=== PATIENT | female | born 1965 | race Caucasian/White ===

== ENCOUNTER → 2021-07-07 | Outpatient (CLI) | payer OTHER ==
[2021-07-09 01:16] LABS: Alternaria alternata IgE <0.10 kU/L; Aspergillus fumagatus IgE <0.10 kU/L; Birch IgE <0.10 kU/L; Cat Epith & Dander IgE 0.85 kU/L; Cladosporian herbarum IgE <0.10 kU/L; Cockroach IgE 0.14 kU/L; Dog Dander IgE <0.10 kU/L; Elm IgE <0.10 kU/L; Maple (Box Elder) IgE <0.10 kU/L; Oak IgE 0.19 kU/L; Ragweed,Common IgE <0.10 kU/L; Red Top (Bentgrass) IgE 0.25 kU/L
== END | disposition home or self-care (01) ==
LOC: LABWHC1 10:28
PROVIDERS: ATTEND Internal Medicine Critical Care Medicine
DX: J45.50 Severe persistent asthma, uncomplicated (principal)
CPT/HCPCS: 36415; 82785; 86003

== ENCOUNTER 2022-08-23 16:39 | Emergency (ER) | payer OTHER ==
[2022-08-23 16:48] VITALS: RESP 16
--- NOTE | 2022-08-23 17:43 | XR ---
EXAMINATION TYPE: XR shoulder complete RT DATE OF EXAM: 08/23/2022 5:37 PM INDICATION: Patient age:Female; 56 years old; Reason for study: fall; COMPARISON: None TECHNIQUE: The right shoulder was examined in AP, internally rotated and scapular Y projections. FINDINGS: No evidence of acute osseous pathology, joint dislocation, or soft tissue swelling. The remaining por tions of the visualized chest are unremarkable. Large osteophytes are present off the acromion and small osteophyte of the inferior glenoid. Consulta tions at the insertion of the supraspinatus are also present. IMPRESSION: No acute osseous pathology. Mild to moderate degeneration of the right shoulder with suspected tendin opathy. If there remains concern for fracture consider CT examination.
[2022-08-23] MEDS ORDERED: ORPHENADRINE 30 MG/ML 2 ML VIAL IM STA (17:53)
[2022-08-23] MEDS ORDERED: ACETAMINOPHEN TAB 500 MG TAB PO STA (17:53)
[2022-08-23] MEDS ORDERED: ACET/COD 300 MG/30 MG STARTER PACK 6 TAB BTL PO STA (18:35)
--- NOTE | 2022-08-23 18:38 | ED ---
General Adult HPI - General Chief complaint: Fall Stated complaint: Fall [facility] Time Seen by Provider: 08/23/22 16:52 Source: patient, RN notes reviewed Mode of arrival: ambulatory Limitations: no limitations - History of Present Illness Initial comments: 56 year-old female presents to the emergency department with chief complaint of mechanical fall that occurred at work about 45 minutes prior to arriving to the emergency Department. She states that she tripped on the curb. Patient states that she fell on her right shoulder and is now having pain. She states that she is unable to lift her arm above her head in the frontal and lateral plane. She did not take anything at home for pain. Denies hitting her head, loss consciousness, blood thinner. Denies any other pain or injury. - Related Data Allergies Allergy/AdvReac Type Severity Reaction Status Date / Time adhesive tape Allergy Rash/Hives Verified 08/23/22 16:48 bacitracin Allergy Rash/Hives Verified 08/23/22 16:48 [From Neosporin ([id number])] erythromycin base Allergy Rapid Verified 08/23/22 16:48 [From Erythrocin] Heart Rate latex Allergy Rash/Hives Verified 08/23/22 16:48 lidocaine Allergy Rash/Hives Verified 08/23/22 16:48 neomycin Allergy Rash/Hives Verified 08/23/22 16:48 [From Neosporin ([id number])] polymyxin B Allergy Rash/Hives Verified 08/23/22 16:48 [From Neosporin ([id number])] Review of Systems ROS Statement: Those systems with pertinent positive or pertinent negative responses have been documented in the HPI. ROS Other: All systems not noted in ROS Statement are negative. Past Medical History Past Medical History: Asthma History of Any Multi-Drug Resistant Organisms: None Reported Past Surgical History: Cholecystectomy, Tonsillectomy Past Psychological History: No Psychological Hx Reported Smoking Status: Never smoker Past Alcohol Use History: None Reported Past Drug Use History: None Reported General Exam Limitations: no limitations General appearance: alert, in no apparent distress Head exam: Present: atraumatic, normocephalic, normal inspection Eye exam: Present: normal appearance, PERRL, EOMI. Absent: scleral icterus, conjunctival injection, periorbital swelling ENT exam: Present: normal exam, mucous membranes moist Neck exam: Present: normal inspection. Absent: tenderness, meningismus, lymphadenopathy Respiratory exam: Present: normal lung sounds bilaterally. Absent: respiratory distress, wheezes, rales, rhonchi, stridor Cardiovascular Exam: Present: regular rate, normal rhythm, normal heart sounds. Absent: systolic murmur, diastolic murmur, rubs, gallop, clicks Extremities exam: Present: other (Decreased abduction and extension of the right shoulder, radial pulse 2+, capillary refills normal, neurovascularly intact) Back exam: Present: normal inspection Neurological exam: Present: alert, oriented X3, CN II-XII intact Psychiatric exam: Present: normal affect, normal mood Skin exam: Present: warm, dry, intact, normal color. Absent: rash Course Vital Signs 08/23/22 08/23/22 16:44 18:56 Temperature 98 F 98.0 F Pulse Rate 93 78 Respiratory 16 16 Rate Blood Pressure 126/75 126/83 O2 Sat by Pulse 98 97 Oximetry Medical Decision Making - Medical Decision Making Was pt. sent in by a medical professional or institution (, PA, APPLIQUE SEWER, urgent care, hospital, or penitentiary...) When possible be specific @ -No Did you speak to anyone other than the patient for history (EMS, parent, family, police, friend...)? What history was obtained from this source @ -No Did you review nursing and triage notes (agree or disagree)? Why? @ -I reviewed and agree with nursing and triage notes Were old charts reviewed (outside hosp., previous admission, EMS record, old EKG, old radiological studies, urgent care reports/EKG's, penitentiary records)? Report findings @ -No old charts were reviewed Differential Diagnosis (chest pain, altered mental status, abdominal pain women, abdominal pain men, vaginal bleeding, weakness, fever, dyspnea, syncope, headache, dizziness, GI bleed, back pain, seizure, CVA, palpatations, mental health, musculoskeletal)? @ -Differential Musculoskeletal Muscular strain, contusion, ligament sprain, fracture, arthritis, septic arthritis, bursitis, cellulitis, muscle spasm, nerve compression, DVT, arterial occlusion, herpes zoster, electrolyte abnormality, tumor.... This is not meant to be in all inclusive list EKG interpreted by me (3pts min.). @ -None X-rays interpreted by me (1pt min.). @ -X-ray right shoulder showed no acute abnormality, evidence of osteoarthritis CT interpreted by me (1pt min.). @ -None done U/S interpreted by me (1pt. min.). @ -None done What testing was considered but not performed or refused? (CT, X-rays, U/S, labs)? Why? @ -None What meds were considered but not given or refused? Why? @ -None Did you discuss the management of the patient with other professionals (professionals i.e. DrMelinda, PA, APPLIQUE SEWER, lab, RT, psych nurse, social media assistant, cyber crime investigator, teacher, global safety officer, oil field caser)? Give summary @ -No Was smoking cessation discussed for >3mins.? @ -No Was critical care preformed (if so, how long)? @ -No Were there social determinants of health that impacted care today? How? (Francisco elessness, low income, unemployed, alcoholism, drug addiction, transportation, low edu. Level, literacy, decrease access to med. care, long term, rehab)? @ -No Was there de-escalation of care discussed even if they declined (Discuss DNR or withdrawal of care, Hospice)? DNR status @ -No What co-morbidities impacted this encounter? (DM, HTN, Smoking, COPD, CAD, Cancer, CVA, ARF, Chemo, Hep., AIDS, mental health diagnosis, sleep apnea, morbid obesity)? @ -None Was patient admitted / discharged? Hospital course, mention meds given and route, prescriptions, significant lab abnormalities, going to OR and other pertinent info. @ -Discharged. Patient presented to the emergency department with chief complaint of fall at work just prior to presenting. Patient complains of right shoulder pain. X-ray of the right shoulder showed no acute abnormality. She was given Tylenol and Norflex injection. Patient cannot have NSAIDs due to prior gastric ulcer. Because of the decreased range of motion patient was given orthopedic information for follow-up on outpatient basis. Patient given a starter pack for Tylenol #3 and instructed to follow up with her primary care provider. Case discussed with my attending, Dr. Bucio. Patient discharged in stable condition Undiagnosed new problem with uncertain prognosis? @ -No Drug Therapy requiring intensive monitoring for toxicity (Heparin, Nitro, Insulin, Cardizem)? @ -No Were any procedures done? @ -No Diagnosis/symptom? @ -Shoulder pain Acute, or Chronic, or Acute on Chronic? @ -Acute Uncomplicated (without systemic symptoms) or Complicated (systemic symptoms)? @ -uncomplicated Side effects of treatment? @ -No Exacerbation, Progression, or Severe Exacerbation? @ -No Poses a threat to life or bodily function? How? (Chest pain, [place], NH, pneumonia, PE, COPD, DKA, ARF, appy, cholecystitis, CVA, Diverticulitis, Homicidal, Suicidal, threat to staff... and all critical care pts) @ -No Disposition Clinical Impression: Fall, Shoulder pain, acute Disposition: HOME SELF-CARE Condition: Stable Instructions (If sedation given, give patient instructions): Fall Prevention (ED) Additional Instructions: Please return to the Emergency Department if symptoms worsen or any other concerns. Is patient prescribed a controlled substance at d/c from ED?: No Referrals: Tereso Moreland MD [Primary Care Provider] - 1-2 days Tom Banegas DO [Doctor of Osteopathic Medicine] - 1-2 days Time of Disposition: 18:35
[2022-08-23 18:57] VITALS: BP 126/83; PULSE 78; TEMP 98
== END 2022-08-23 18:57 | disposition home or self-care (01) ==
LOC: EC 16:39
DX: M25.511 Pain in right shoulder (principal); J45.909 Unspecified asthma, uncomplicated; Z88.1 Allergy status to other antibiotic agents; Z88.4 Allergy status to anesthetic agent; Z91.040 Latex allergy status; Z91.09 Other allergy status, other than to drugs and biological substances; W01.0XXA Fall on same level from slipping, tripping and stumbling without subsequent striking against object, initial encounter; Y99.0 Civilian activity done for income or pay
CPT/HCPCS: 73030; 99284; 96372; J2360

== ENCOUNTER → 2022-10-04 | Outpatient (CLI) | payer OTHER | END | disposition home or self-care (01) | LOC: LABPAT 07:51 | PROVIDERS: ATTEND Orthopaedic Surgery Sports Medicine | DX: Z01.812 Encounter for preprocedural laboratory examination (principal) | CPT/HCPCS: 36415; 84132 ==

== ENCOUNTER 2022-10-05 06:59 | Day surgery (SDC) | payer OTHER ==
[~2022-10-05 06:59] MED LIST: DESMOPRESSIN ACETATE 40 MCG in SODIUM CHLORIDE 0.9% 50 ML IVPB PRN; DEXAMETHASONE SOD PHOSPHATE 4 MG/ML 1 ML VIAL IV ONE; LACTATED RINGERS 1,000 ML IV SCH; MIDAZOLAM 2 MG/2 ML VIAL IV PRN; ONDANSETRON 4 MG/2 ML VIAL IVP ONE; Pre Op ABX Message 1 EACH MISC MISCELLANE ONE; SCOPOLAMINE 1 MG/72 HR PATCH TRANSDERM ONE
[2022-10-05] MEDS ORDERED: HYDROmorphone 0.5 MG/0.5 ML SYRINGE IVP PRN (07:00)
[2022-10-05] MEDS ORDERED: MIDAZOLAM 2 MG/2 ML VIAL IVP ONE (07:45)
[2022-10-05] MEDS ORDERED: GLYCOPYRROLATE 0.2 MG/ML 2 ML VIAL ONE (07:59)
[2022-10-05] MEDS ORDERED: ROCURONIUM 10 MG/ML (5 ML VIAL) IV ONE (07:59)
[2022-10-05] MEDS ORDERED: DEXAMETHASONE SOD PHOSPHATE 4 MG/ML 1 ML VIAL ONE (07:59)
[2022-10-05] MEDS ORDERED: fentaNYL (PF) 50 MCG/ML 2 ML AMP ONE (07:59)
[2022-10-05] MEDS ORDERED: MIDAZOLAM 2 MG/2 ML VIAL ONE (07:59)
[2022-10-05] MEDS ORDERED: SUCCINYLCHOLINE CHLORIDE 200 MG/10 ML VIAL IV ONE (07:59)
[2022-10-05] MEDS ORDERED: PHENYLEPHRINE-0.9% NACL SYG 1,000 MCG/10 ML SYRINGE ONE (07:59)
[2022-10-05] MEDS ORDERED: PROPOFOL 10 MG/ML 20 ML VIAL IV ONE (07:59)
[2022-10-05] MEDS ORDERED: ROPIVACAINE 5 MG/ML 30 ML VIAL ONE (07:59)
[2022-10-05] MEDS ORDERED: NEOSTIGMINE 1 MG/ML 10 ML VIAL ONE (07:59)
[2022-10-05] MEDS ORDERED: ALBUTEROL INHALER 60 PUFF/8 GM INHALER (MHU) INHALATION ONE (08:02)
[2022-10-05 08:03] LABS: Basophils % (A) 0 %; Eosinophils # (A) 0.1 k/uL (0-0.7); Eosinophils % (A) 2 %; HGB 13.8 gm/dL (11.4-16.0); Lymphocytes # (A) 1.5 k/uL (1.0-4.8); Lymphocytes % (A) 28 %; MCH 29.5 pg (25.0-35.0); MCHC 32.2 g/dL (31.0-37.0); MCV 91.5 fL (80.0-100.0); Mean Platelet Volume 11.6; Monocytes # (A) 0.4 k/uL (0-1.0); Monocytes % (A) 7 %; Neutrophils # (A) 3.3 k/uL (1.3-7.7); Neutrophils % (A) 61 %; Platelet Count 144 k/uL (150-450); RDW 13.8 % (11.5-15.5); WBC 5.4 k/uL (3.8-10.6)
[2022-10-05 08:08] LABS: ALT 32 U/L (4-34); AST 31 U/L (14-36); African American GFR (CKD) 69 (>60 ml/min/1.73 sqM); Alkaline Phosphatase 65 U/L (38-126); Anion Gap 6 mmol/L; Blood Urea Nitrogen 34 mg/dL (7-17); Calcium 9.2 mg/dL (8.4-10.2); Carbon Dioxide 33 mmol/L (22-30); Chloride 99 mmol/L (98-107); Glucose 107 mg/dL (74-99); Non-African American GFR(CKD) 60 (>60 ml/min/1.73 sqM); Potassium 3.8 mmol/L (3.5-5.1); Sodium 138 mmol/L (137-145); Total Bilirubin 0.8 mg/dL (0.2-1.3); Total Protein 6.8 g/dL (6.3-8.2)
[2022-10-05] MEDS ORDERED: SODIUM CHLORIDE 0.9% 100 ML BAG ONE (08:14)
[2022-10-05] MEDS ORDERED: ceFAZolin 1,000 MG VIAL ONE (08:14)
[2022-10-05] MEDS ORDERED: LIDOCAINE 2%-EPI 1:100,000 20 ML VIAL SQ ONE ×2 (08:35)
[2022-10-05 09:41] VITALS: TEMP 97
[2022-10-05] MEDS ORDERED: ONDANSETRON 4 MG/2 ML VIAL IVP ONE (09:50)
--- NOTE | 2022-10-05 11:17 | P.ANPRN ---
Procedure Note - Anesthesia - Nerve Block Performed Right Interscalene Single Time Out Performed: Yes Date of Procedure: 10/05/22 Procedure Start Time: 06:45 Procedure Stop Time: :52 Location of Patient: PreOp Indication: Acute Post-Operative Pain, Requested by Surgeon Sedation Type: Sedate with meaningful contact maintained Preparation: Sterile Prep Position: Supine Needle Types: Pajunk Needle Gauge: 21 Ultrasound used to visualize needle placement: Yes Ultrasound used to observe medication spread: Yes Blood Aspirated: No Pain Paresthesia on Injection Noted: No Resistance on Injection: Normal Image Stored and Saved: Yes Events: Uneventful and Well Tolerated (Ropivacaine 0.5% 20 mL plus dexamethasone 4 mg)
[2022-10-05] MEDS ORDERED: HYDROcodone/APAP 7.5-325MG 1 EACH TAB ONE (11:33)
[2022-10-05 11:52] VITALS: RESP 14
[2022-10-05 12:21] VITALS: BP 101/66; PULSE 97
--- NOTE | 2022-10-05 16:48 | OP ---
OPERATIVE REPORT DATE OF SERVICE : 10/05/2022 PREOPERATIVE DIAGNOSES: 1. Right shoulder full-thickness rotator cuff tear. 2. Right shoulder superior labral tear. 3. Right shoulder medial subluxation of long head biceps tendon. 4. Right shoulder subacromial impingement. POSTOPERATIVE DIAGNOSES: 1. Right shoulder full-thickness tear of the supraspinatus and the anterior infraspinatus measuring 2 cm x 2 cm. There was also a small tear of the upper border of the subscapularis as well. 2. Right shoulder type 2 superior labral tear. 3. Right shoulder partial tearing, intra-articular, long head of the biceps tendon with medial subluxation. 4. Right shoulder type 2 to 3 anterolateral acromial spur. PROCEDURES PERFORMED: 1. Right shoulder arthroscopic rotator cuff repair. 2. Right shoulder arthroscopic acromioplasty. 3. Right shoulder arthroscopic biceps tenotomy. 4. Right shoulder arthroscopic anterior, superior, and posterior labral debridement. ANESTHESIA: General endotracheal. ESTIMATED BLOOD LOSS: Minimal. TOURNIQUET: None. DRAINS: None. COMPLICATIONS: None apparent. DISPOSITION: Postanesthesia care unit. FINDINGS: EXAMINATION UNDER ANESTHESIA OF THE RIGHT SHOULDER: Elevation 160 degrees. External rotation at the side 45 degrees. External rotation at 90 degrees of abduction was 90 degrees. Internal rotation at 90 degrees of abduction was 60 degrees. Sulcus less than 1 cm. Anterior translation glenoid face. Posterior translation glenoid face. ARTHROSCOPIC FINDINGS OF THE RIGHT SHOULDER: 1. Superior labrum: Type 2 superior labral tear. This extended both anterior and posterior to the biceps anchor. The biceps anchor was not intact. She also had partial tearing of the intra-articular portion of the long head of the biceps tendon. There was a small superior border tear of the subscapularis as well, and the biceps was medially subluxed over the small tear. 2. Anterior-inferior labrum: Normal glenoid labral attachment. 3. Posterior labrum: Tearing of the posterior labrum from the 10 o'clock position to the 12 o'clock position on the glenoid face. 4. Humeral head: Cartilage was normal. 5. Rotator cuff: Large full-thickness tear of the supraspinatus and the anterior infraspinatus measuring 2 cm x 3 cm. 6. Glenoid face: Cartilage was normal. 7. Subacromial space: Significant fraying of the undersurface of the coracoacromial ligament with a type 2 to 3 anterolateral acromial spur. INDICATIONS FOR PROCEDURE: Blessing is a very pleasant 56-year-old female, who injured her right shoulder. She has noted weakness as well as significant pain in the shoulder. She has been through a fairly significant course of nonoperative treatment up to this point. Physical examination and MRI revealed tearing of the superior labrum as well as a large rotator cuff tear. At this point in time, she feels that she has failed nonoperative treatment and would like to proceed with operative intervention. Long discussion was held with the patient with regard to treatment options. The risks of procedure were all discussed with her in detail. These risks included but were not limited to risk of infection, nerve damage, bleeding, pain, and a small risk of deep vein thrombosis which could lead to fatal pulmonary embolism. Further risks included lack of healing of rotator cuff and a possibility for biceps contour change with a biceps tenotomy. The patient understands the operation as well as the fact that there was no guarantee of improvement of her symptoms. Appropriate informed consent was obtained. DESCRIPTION OF PROCEDURE: The patient was identified in the preoperative holding area. Surgical site was marked by both the patient and myself. She was given 2 g of Ancef IV for prophylactic purposes. She was then transported to the operative suite. She was placed supine on the operating room table. The patient was then intubated endotracheally and received general anesthesia throughout the operative procedure. An examination under anesthesia was then performed, and the findings were noted as above. The patient was then placed into the beach chair position and well-padded in preparation for surgery. Great care was taken to ensure the cervical spine was in neutral alignment, well-padded, and maintained that way throughout the operative procedure. Great care was also taken to ensure that her legs were appropriately padded as well. The patient's right upper extremity was then prepped and draped in usual sterile fashion. Standard surgical pause was undertaken to ensure that appropriate preoperative antibiotics had been given and that we were operating the correct site. All staff in the room were in agreement, and we proceeded. The acromion as well as the AC joint, clavicle, and coracoid were marked with a surgical pen. The skin of the anticipated portal sites was also marked with a surgical pen. The skin of the anticipated portal sites was then injected with 0.25% Marcaine with epinephrine. I then proceeded to make the posterior portal. A 30-degree arthroscope was introduced into the glenohumeral joint through this portal. The arthroscopic pump pressure was set at 40 mmHg and maintained at that level throughout the entire case. Next, utilizing an 18-gauge spinal needle to topically localize the placement, the anterior-superior portal was made. This was made just underneath the biceps tendon and high in the rotator interval. A small blue 5.75 mm cannula was then placed, and the outflow was then done through this cannula. A diagnostic arthroscopy of the shoulder was then performed. The findings were noted as above. Great care was taken to probe superior labral complex as well as biceps anchor. The biceps anchor was not firmly attached. She had significant tearing of the superior labrum. This extended both anterior and posterior to the biceps anchor. The intra- articular portion of the long head of the biceps tendon did have partial tearing as well. Of note, it was also medially subluxed over the superior rolled border of the subscapularis. There was a very small tearing of the superior rolled border of the subscapularis. Approximately 95% of the subscapularis was intact. At this point, I proceeded with a biceps tenotomy. The biceps was tenotomized near its attachment on the supraglenoid tubercle. This was done utilizing ArthroCare wand. I then proceeded to debride the torn loose tissue of the superior labrum. This was debrided anteriorly, superiorly, and posteriorly back to stable tissue. I then inspected the rotator cuff from intra-articular. She did have a large full- thickness tear of the supraspinatus and the anterior infraspinatus. This tear was debrided very gently from intra-articular utilizing synovial shaver. Also, at this point, with a small tear on the subscapularis, I placed a FiberTape suture utilizing 410 Labsion suture passer in an inverted horizontal mattress fashion in the superior aspect of that tear. The suture was then brought out anteriorly. At this point in time, no further work was deemed necessary from intra-articular. The arthroscope was removed from the glenohumeral joint, and utilizing the same posterior skin incision, it was placed in the subacromial space. Next, utilizing an 18-gauge spinal needle to topically localize the placement, a lateral portal was made under direct visualization. Subacromial bursectomy was then performed utilizing synovial shaver as well as the ArthroCare wand. There was significant fraying of the undersurface of the coracoacromial ligament. This was then taken down utilizing the ArthroCare wand. This exposed the underlying type 2 to 3 anterolateral acromial spur. I then proceeded with an acromioplasty. Utilizing synovial shaver in a bur-type fashion, the acromioplasty was completed. When the acromioplasty was completed, the arthroscope was placed in the lateral portal, and the shaver was placed posteriorly to ensure that it was adequate and coplanar with the posterior aspect of the acromion. I then proceeded to repair the rotator cuff tear. I made a fourth portal off the anterolateral angle of the acromion. Again, this was done after first localizing its placement with an 18-gauge spinal needle. The footprint of the greater tuberosity was then debrided of all devitalized tissue utilizing synovial shaver as well as the ArthroCare wand. I then performed a light decortication of the greater tuberosity utilizing synovial shaver in a bur-type fashion. This provided a nice bleeding surface to repair. I then proceeded with repair. It was a fairly large tear, so I utilized an Arthrex SpeedBridge type double-row equivalent repair. I then placed a 4.75 mm BioComposite SwiveLock anchor preloaded with a FiberTape suture in the posteromedial aspect of the footprint. The FiberTape suture was then shuttled through good quality rotator cuff tissue in the posterior aspect of the tear. Then, I proceeded to place the anteromedial anchor. I preloaded it with the FiberTape suture and incorporated the subscapularis sutures into this anchor. The awl was placed in the most anteromedial aspect of the footprint. The subscapularis SutureTapes were tensioned appropriately, and then the anchor was placed with an excellent purchase in bone. The other FiberTape suture was then shuttled through good quality rotator cuff tissue in the anterior aspect of the tear. I then proceeded with placement of the posterolateral anchor. One limb of the anterior FiberTape and one limb of the posterior FiberTape were then brought out through the lateral portal. The awl was placed in the most posterolateral aspect of the footprint. This was in the metaphyseal portion of the greater tuberosity. The sutures were tensioned appropriately. A 4.75 mm Bio SwiveLock anchor was then placed with a good purchase in bone. The FiberTape sutures were cut flush with the anchor. I then placed the anteromedial anchor. The remaining posterior FiberTape limb and the anterior FiberTape limb were then brought out through the anterolateral portal. The awl was placed in the most anterolateral aspect of the footprint. This was just posterior to the bicipital groove. The FiberTape sutures were tensioned appropriately, and the anchor was then placed with an excellent purchase in bone. These FiberTape sutures were cut flush with the anchor. The rotator cuff repair was then evaluated. The rotator cuff had been repaired very nicely down to the most lateral aspect of the footprint. There was good quality tissue. All anchors had excellent purchase in bone. At this point in time, no further work was deemed necessary. The shoulder was thoroughly irrigated and drained with an outflow cannula. The arthroscopic equipment was removed from the shoulder. The arthroscopic portals were then closed with 3-0 nylon interrupted suture. Sterile compressive dressing was then applied. The patient's right upper extremity was placed in a standard sling. All sponge and needle counts were deemed correct prior to closure. The patient tolerated the procedure without apparent complication. She was transferred to the recovery room in stable condition. MMODL / IJN: [id number] /
== END 2022-10-05 13:00 | disposition home or self-care (01) ==
LOC: OR 06:59
PROVIDERS: ATTEND Orthopaedic Surgery Sports Medicine
DX: S46.011A Strain of muscle(s) and tendon(s) of the rotator cuff of right shoulder, initial encounter (principal); S46.111A Strain of muscle, fascia and tendon of long head of biceps, right arm, initial encounter; S43.431A Superior glenoid labrum lesion of right shoulder, initial encounter; W10.1XXA Fall (on)(from) sidewalk curb, initial encounter; G89.18 Other acute postprocedural pain; M06.9 Rheumatoid arthritis, unspecified; J45.909 Unspecified asthma, uncomplicated; G47.33 Obstructive sleep apnea (adult) (pediatric); E66.01 Morbid (severe) obesity due to excess calories; Z68.43 Body mass index [BMI] 50.0-59.9, adult; D69.6 Thrombocytopenia, unspecified; F32.A Depression, unspecified; E78.5 Hyperlipidemia, unspecified; Z79.52 Long term (current) use of systemic steroids; Z79.51 Long term (current) use of inhaled steroids; Z79.899 Other long term (current) drug therapy; Z90.49 Acquired absence of other specified parts of digestive tract; Z91.040 Latex allergy status; Z91.048 Other nonmedicinal substance allergy status; Z88.8 Allergy status to other drugs, medicaments and biological substances; Z88.1 Allergy status to other antibiotic agents; Z88.4 Allergy status to anesthetic agent
CPT/HCPCS: 29827; 29826; 64415; 86900; 86901; 80053; 85025; 86850; C1713 ×2; J2250; J0330; J1100; J2710; J2405; J0690; J3010; J2795; J2370; J2704; J2597; J1170

== ENCOUNTER → 2023-02-26 | Outpatient (CLI) | payer OTHER | LOC: 3 N SLEEP 10:44 | PROVIDERS: ATTEND Internal Medicine Critical Care Medicine | DX: G47.33 Obstructive sleep apnea (adult) (pediatric) (principal); Z91.048 Other nonmedicinal substance allergy status; Z88.8 Allergy status to other drugs, medicaments and biological substances; Z91.040 Latex allergy status; Z88.1 Allergy status to other antibiotic agents ==

== ENCOUNTER → 2023-06-06 | Outpatient (CLI) | payer OTHER ==
[2023-06-06 13:39] VITALS: BP 126/74; PULSE 93; RESP 16; TEMP 97.3
--- NOTE | 2023-06-06 14:02 | XR ---
3 view lumbar spine. DATE: 06/06/2023. COMPARISON: None available. Conclusions history: Low back pain. FINDINGS: The vertebral bodies are well aligned without evidence of fracture, subluxation or dislocation. The vertebral body heights and disc spaces are maintained. IMPRESSION: No acute osseous abnormality and no significant degenerative changes.
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
== END ==
LOC: PNWHC3 12:48
PROVIDERS: ATTEND Specialist
DX: M51.17 Intervertebral disc disorders with radiculopathy, lumbosacral region (principal); G89.4 Chronic pain syndrome; M19.90 Unspecified osteoarthritis, unspecified site; J45.909 Unspecified asthma, uncomplicated; E78.5 Hyperlipidemia, unspecified; K21.9 Gastro-esophageal reflux disease without esophagitis; Z79.899 Other long term (current) drug therapy; Z91.048 Other nonmedicinal substance allergy status; Z88.8 Allergy status to other drugs, medicaments and biological substances; Z88.1 Allergy status to other antibiotic agents; Z91.040 Latex allergy status
CPT/HCPCS: 72100; G0463; 99211

== ENCOUNTER → 2023-09-18 | Outpatient (CLI) | payer OTHER ==
--- NOTE | 2023-09-18 22:53 | MR ---
EXAMINATION TYPE: MR lumbar spine wo con DATE OF EXAM: 09/18/2023 COMPARISON: Lumbar spine x-ray June 06, 2023 HISTORY: Low back pain into both sides x1 year. Lumbar DDD. TECHNIQUE: Multiplanar, multisequence imaging of the lumbar spine is performed without IV contrast. FINDINGS: Sagittal images of the lumbar spine show vertebral body heights and alignment to appear sat isfactory. Disc desiccation L4-L5 level. The intervertebral discs demonstrate normal heights. The co nus medullaris is normal in position and signal ending mid L1 level. The bone marrow signal intensit y is within normal limits. There is moderate disc space narrowing with mild to moderate anterior spur ring and heterogeneous Modic type II endplate changes and anterior T11-T12 level noted. Axial images show T12-L1 and L1-L2 levels to appear within normal limits. Axial images at L2-L3 through the L5-S1 levels show mild facet arthropathy bilaterally. Spinal canal is preserved. Bilateral neural foramina are patent. Paraspinal muscle bulk is maintained. Simple thin-walled cysts centrally in the left kidney are felt present. IMPRESSION: Mild multilevel facet arthropathy in the mid to lower lumbar spine. No large disc herniat ion is evident.
== END | disposition home or self-care (01) ==
LOC: RADMRIMAIN 21:15
PROVIDERS: ATTEND Specialist
DX: M51.36 Other intervertebral disc degeneration, lumbar region (principal); M47.816 Spondylosis without myelopathy or radiculopathy, lumbar region
CPT/HCPCS: 72148

== ENCOUNTER → 2024-01-30 | Outpatient (CLI) | payer OTHER ==
--- NOTE | 2024-01-30 13:05 | NM ---
EXAMINATION TYPE: NM DatScan Brain SPECT DATE OF EXAM: 01/30/2024 COMPARISON: NONE HISTORY: Tremor TECHNIQUE: 10 drops of Lugol's solution was administered 1 hour prior to injection as a thyroid bloc arnaud agent. After the administration of 4.99 mCi I-123 Ioflupane DaTscan. Images obtained 3 hours p ost injection. SPECT images of the brain were acquired with axial and coronal reconstructions. FINDINGS: The axial SPECT images demonstrate normal background activity and symmetric activity within the bilateral striata. Z score analysis performed. IMPRESSION: No diagnostic evidence of idiopathic Parkinson's disease or Parkinsonian syndrome. [facility], , 01/30/2024 1:03 PM
== END ==
LOC: RADNMMAIN 07:49
PROVIDERS: ATTEND Psychiatry & Neurology Neurology
DX: R25.1 Tremor, unspecified (principal)
CPT/HCPCS: 78803

== ENCOUNTER → 2024-08-29 | Outpatient (CLI) | payer OTHER ==
--- NOTE | 2024-08-29 09:44 | CT ---
EXAMINATION TYPE: CT chest wo con DATE OF EXAM: 08/29/2024 9:20 AM COMPARISON: 07/01/2015. CLINICAL INDICATION: Female, 58 years old with history of R06.09 dyspnea; PHH, dyspnea, blood disorde r TECHNIQUE: Multiple axial images were obtained through the chest. Sagittal and coronal reformats were created for review. MIP was performed on a separate workstation. Contrast used: mL of (None if empty) Oral contrast used: (None if empty) CT DLP: 616.3 mGycm, Automated exposure control for dose reduction was used. FINDINGS: LUNGS/ PLEURA: No focal consolidation, pneumothorax or pleural effusion. Stable flat like nodule righ t lower lobe series 7 image 52 compared to prior. 07/01/2015. AIRWAY: Patent and unremarkable. HEART: Size within normal limits. No significant coronary artery calcifications. MEDIASTINUM: No gross evidence of adenopathy. VASCULATURE: No aortic aneurysm. MUSCULOSKELETAL: Mild disc degeneration changes are present throughout the thoracolumbar spine second gracie to osteophyte formation and facet joint arthropathy. SOFT TISSUES/LYMPH NODES: Unremarkable. LOWER NECK: No significant findings. UPPER ABDOMEN: The gallbladder is surgically absent. Peripelvic renal cysts on the left similar to pr ior partially visualized. Few scattered colonic diverticula. IMPRESSION: 1. No acute thoracic process. 2. Stable right lower lobe pulmonary nodule Follow up recommendations for incidental pulmonary nodules, if there are any, are per [employer] [place] [employer] [employer] or [employer]. [email or web address]?lang=us [facility], , 08/29/2024 9:42 AM
== END | disposition home or self-care (01) ==
LOC: RADCTMAIN 08:45
PROVIDERS: ATTEND Family Medicine
DX: R91.1 Solitary pulmonary nodule (principal); R06.09 Other forms of dyspnea; D69.9 Hemorrhagic condition, unspecified; R79.89 Other specified abnormal findings of blood chemistry; R89.9 Unspecified abnormal finding in specimens from other organs, systems and tissues
CPT/HCPCS: 71250